=== PATIENT | male | born 1980 | race Caucasian/White ===

== ENCOUNTER 2018-07-02 11:21 | Emergency (ER) | payer BC ==
[~2018-07-02] VITALS: Ht 177.8 cm; Wt 81.7 kg
[~2018-07-02 11:21] MED LIST: ATROPINE 1% OP; CIPROFLOXACIN500 MG PO; EYE OP; FLAGYL250 MG PO; HYDROCODON-ACE1 EAC3 PO; MULTIVITAMINS1 EAC7 PO; OCUFLOX5 ML OP; PERCOCET 7.5-31 EACH PO; PREDNISOLONE SO10 ML OP
== END 2018-07-02 12:25 | disposition home or self-care (01) ==
LOC: ED 11:21
DX: S05.01XA Injury of conjunctiva and corneal abrasion without foreign body, right eye, initial encounter (principal); Z87.891 Personal history of nicotine dependence; X58.XXXA Exposure to other specified factors, initial encounter
CPT/HCPCS: 99283